=== PATIENT | female | born 1970 | race Caucasian/White ===

== ENCOUNTER → 2018-08-14 06:58 | Outpatient (CLI) | payer BC, SELFPAY ==
--- NOTE | 2018-08-14 07:01 | BI_ITS ---
MAMMOGRAPHY - BILATERAL SCREENING REASON FOR EXAM: Female, 48 years old. Routine annual screening examination. PERTINENT HISTORY: Mother with breast cancer. TECHNIQUE: Digital bilateral breast lucas (3D mammographic acquisition) in the CC and MLO projections. 2-D mediolateral oblique (MLO) and craniocaudad (CC) views of both breasts were obtained. CAD: Full Field Digital Mammography with Computer Added Detection was performed. COMPARISON: Comparison is made with prior study dated April 24, 2017 and January 02, 2015. FINDINGS: Breast Composition: There are scattered areas of fibroglandular density. There are no dominant masses or suspicious calcifications. Stable appearance of the small nodular densities in both breasts. Stable appearance of the bilateral axillary lymph nodes. No other significant abnormalities are identified. There has been no significant change since the prior study. BI/SCREENING MAMM (CAD), BILAT IMPRESSION: Stable bilateral screening mammogram. Yearly follow-up mammogram recommended. (A) ASSESSMENT CATEGORY: BIRADS Category 2: Benign. A letter regarding these results will be sent to the patient by the facility within 30 days. Approximately 10% of breast cancers are not detected by mammography. A normal mammogram should not delay biopsy of a clinically suspicious abnormality. [id number] Electronically Signed: Po Schroeder MD at 11:06 EDT Tel [phone], Service support ,
== END ==
PROVIDERS: Referring Provider Obstetrics & Gynecology; Visit Provider Obstetrics & Gynecology
DX: Z12.31 Encounter for screening mammogram for malignant neoplasm of breast (principal)
CPT/HCPCS: 77063; 77067

== ENCOUNTER → 2020-06-29 11:49 | Outpatient (CLI) | payer BC, SELFPAY ==
[2016-08-13 14:24] VITALS: BMI 32.5
[2020-07-03 09:25] LABS: HPV Reflexed? NOT INDICATED
== END ==
PROVIDERS: Visit Provider Obstetrics & Gynecology
DX: Z12.4 Encounter for screening for malignant neoplasm of cervix (principal)
CPT/HCPCS: 88175; G0145

== ENCOUNTER → 2020-07-27 07:02 | Outpatient (CLI) | payer BC, SELFPAY ==
--- NOTE | 2020-07-27 07:04 | BI_ITS ---
MAMMOGRAPHY - BILATERAL SCREENING REASON FOR EXAM: Female, 50 years old. Routine annual screening examination. PERTINENT HISTORY: Mother with breast cancer. TECHNIQUE: Digital bilateral breast angelo (3D mammographic acquisition) in the CC and MLO projections. 2-D mediolateral oblique (MLO) and craniocaudad (CC) views of both breasts were obtained. CAD: Full Field Digital Mammography with Computer Added Detection was performed. COMPARISON: Comparison is made with prior study 08/14/2018 and 04/24/2017. FINDINGS: Breast Composition: There are scattered areas of fibroglandular density. There are no dominant masses or suspicious calcifications. Stable benign-appearing bilateral axillary lymph nodes. Stable subcentimeter nodular densities in the right breast No other significant abnormalities are identified. There has been no significant change since the prior study. BI/SCREEN MAMM (CAD) W/ANGELO BILAT IMPRESSION: Stable bilateral screening mammogram. Yearly follow-up mammogram recommended. (A) ASSESSMENT CATEGORY: BIRADS Category 2: Benign. A letter regarding these results will be sent to the patient by the facility within 30 days. Approximately 10% of breast cancers are not detected by mammography. A normal mammogram should not delay biopsy of a clinically suspicious abnormality. [id number] Electronically Signed: Po Schroeder, at 8:01 EDT , Service support ,
== END ==
PROVIDERS: Referring Provider Obstetrics & Gynecology; Visit Provider Obstetrics & Gynecology
DX: Z12.31 Encounter for screening mammogram for malignant neoplasm of breast (principal)
CPT/HCPCS: 77063; 77067

== ENCOUNTER → 2021-10-12 15:32 | Outpatient (CLI) | payer BC, SELFPAY ==
--- NOTE | 2021-10-12 15:32 | MRI_ITS ---
STUDY: MRI LEFT KNEE REASON FOR EXAM: Female, 51 years old. LEFT knee pain, swelling, unable to bear weight TECHNIQUE: Standardized fat and water weighted pulse sequences were obtained in all 3 orthogonal planes. COMPARISON: Left knee x-ray dated September 03, 2021 FINDINGS: Complex tearing is present in the root insertion of the posterior horn of medial meniscus. Mild intrasubstance degenerative signal is present in the body and anterior horn. The body is partly subluxed out of the joint space. There is diffuse, less than 50% thickness articular cartilage loss of the medial femorotibial compartment. Mild subchondral reactive signal is present anterior aspect of the lateral femoral condyle. Normal medial collateral ligamentous complex (MCL). Normal distal semimembranosus, gracilis and semitendinosus tendons. Normal lateral meniscus. There is diffuse, less than 50% thickness articular cartilage loss of the lateral femorotibial compartment. Normal lateral femoral condyle and tibial plateau. Normal proximal tibiofibular articulation. Normal lateral collateral (fibular) ligament. Normal popliteus tendon. Normal biceps femoris tendon. Normal anterior cruciate ligament (ACL). Normal posterior cruciate ligament (PCL). Normal congruent patellofemoral articulation. Normal hyaline cartilage of the patellofemoral compartment. Normal medial and lateral patellar retinaculum. Normal quadriceps tendon. Normal patellar tendon. Normal Hoffa''s fat pad. Small joint effusion noted. Mild subcutaneous edema is present anterior aspect the knee joint. MRI/Lower Ext Joint Only (Routine) IMPRESSION: 1. Complex tearing is present in the root insertion of the posterior horn of medial meniscus. Mild intrasubstance degenerative signal is present in the body and anterior horn. Electronically Signed: Filiberto Giles MD at 21:05 EST , Service support ,
== END ==
PROVIDERS: PCP Family Medicine; Referring Provider Physician Assistant; Visit Provider Physician Assistant
DX: M25.561 Pain in right knee (principal); M76.51 Patellar tendinitis, right knee; M22.2X1 Patellofemoral disorders, right knee
CPT/HCPCS: 73721

== ENCOUNTER 2021-10-15 17:00 | Outpatient (RCR) | payer BC, SELFPAY ==
--- NOTE | 2021-09-26 16:24 | HP.PTEVAL_ITS ---
Patient's Visit Information MATTHEW MCCOY is a 51 year old F referred to Physical Therapy by GABY Valenzuela with a diagnosis of Rt. patellar tendonitis,tendinosis. Date of Evaluation: 09/26/21 Physical Therapist: Tl Mccall DPT - Visit Plan Frequency: 2x /Week Duration: 4 Weeks Plan: Improve knee ROM, stretch hamstrings and work to decrease knee pain. Re- evaluate strength and meniscal special tests once pain is alleviated. - Subjective Pt presents to PT with Right knee pain starting 09/18/21 after ascending and descending basement stairs carrying boxes, and moving furniture the day before. She states by the end of each day her knee swells significantly. Pt states that she ices it which allows some relief but not significantly. Pt states pain can be present during non-weightbearing activities and at rest the knee can be achy and throbbing. She states her knee locked up the other day. Pt reports the pain is constant. Denies numbness and tingling in legs, but experiences numbness in foot. Pt reports at work she has to do a lot of stairs at work and currently is experiencing significant pain when ambulating stairs. Pt states most painful region of knee is on her patellar tendon. Pt goals for therapy are to relieve pain. - Pain Right Knee Pain Intensity (Out of 10): 2 Pain Intensity Range: 0, 8 - Objective ROM: R AROM 0-4-91, PROM 0-3- 95 (empty end feel); L AROM: 0-0-120 ; Patellar mobilization on R provoked pain. STRENGTH: Knee: flexion 4+, extension 4(limited by pain), Hip : flexion 4 (limited by pain) IR 4+, ER 5 ; Left: flexion 4+, extension 4(limited by pain), Hip flexion 4+, IR 5, ER 5. NEURO : sensation: light touch intact reflexes: bilaterally: Achilles 2+, patellar 2+. GAIT: antalgic gait, limited right knee extension during stance phase - Balance/Special Test Scores Lower Extremity Functional Score: 25 - Goals Goal 1:: Pt will be independent with HEP. Goal Time Frame: 2-4 Weeks Goal 2:: STG: Pt will report 0-2/10 pain with gait around home. Goal Time Frame: 2-4 Weeks Goal 3:: LTG: Pt will have 0-120 right knee flexion, to allow for normalized gait. Goal Time Frame: 2-4 Weeks Goal 4:: LTG: pt will improve LEFS disability to < 20%. Goal Time Frame: 2-4 Weeks - Rehabilitation Potential Physical Therapy Diagnosis: knee pain, limited knee ROM Rehabilitation Potential: Good - Anticipated Interventions Patient/Client Instruction: Educate patient on: Condition, Plan of Care, Benefits of Fitness Program For the Purpose of:: To decrease pain, To decrease swelling/inflammation, To increase ROM, To improve ability to perform ADL's, To increase tolerance to activity/condition/position, To improve performance and independence with ADL's, To improve ability of physical actions for home/community/work/leisure, To improve gait and locomotor functions, To improve health of tissue, To increase flexibility/ROM, To assume or resume ADL's, To improve tolerance to ADL's Therapeutic Exercise to Include: Strength training, Body mechanics, Flexibilty training, Passive ROM, Active ROM For the Purpose of:: To decrease pain, To decrease swelling/inflammation, To increase ROM, To improve nutrient delivery to tissue, To improve ability to perform ADL's, To increase tolerance to activity/condition/position, To improve ability of physical actions for home/community/work/leisure, To improve health of tissue, To decrease soft tissue restriction, To increase flexibility/ROM, To assume or resume ADL's Manual Therapy Techniques to Include: Trigger point massage, Massage, Mobilization, Passive ROM, Soft tissue mobilization For the Purpose of:: To decrease pain, To decrease swelling/inflammation, To in crease ROM, To improve ability to perform ADL's, To decrease soft tissue restriction, To increase flexibility/ROM, To assume or resume ADL's TENS: Yes Cryotherapy (ice pack, ice massage): Yes For the Purpose of:: To decrease pain, To decrease swelling/inflammation, To increase ROM, To decrease soft tissue restriction, To increase flexibility/ROM Thank you for the opportunity to evaluate your patient. For Medicare and Medicare HMO plans, please review the plan of care and approve it. It will need to be FAXED BACK to us at [phone] for Medicare purposes. For Medicare only, by signing this I certify the plan of care. Please let me know if there are questions or concerns regarding this plan of care. Physician Signature: Date:
== END 2021-10-15 19:00 | disposition home or self-care (01) ==
LOC: PT 17:00
PROVIDERS: PCP Family Medicine; Referring Provider Physician Assistant; Visit Provider Physician Assistant
DX: M76.51 Patellar tendinitis, right knee (principal); E88.89 Other specified metabolic disorders
CPT/HCPCS: 97014; 97110; 97161; G0283

== ENCOUNTER 2023-09-23 13:16 | Emergency (ER) | payer OTHER, BC, SELFPAY ==
[2023-09-23 13:19] VITALS: BP 174/88; PULSE 103; RESP 16; TEMP 37; O2SAT 98; BMI 34.4
--- NOTE | 2023-09-23 14:10 | RAD_ITS ---
STUDY: X-RAY - RIGHT ANKLE REASON FOR EXAM: Female, 53 years old. Injury/Pain TECHNIQUE: 3 view(s) of the ankle. COMPARISON: None. FINDINGS: Normal visualized distal tibia and fibula. Normal medial and lateral malleoli. Normal tibiotalar articulation and ankle mortise. Calcaneal spurs. The visualized subtalar, talonavicular, calcaneocuboid and tarsal articulations are normal. Lateral soft tissue swelling. RAD/Ankle min 3 Views IMPRESSION: Lateral soft tissue swelling. Calcaneal spurs. Electronically Signed: Po Schroeder MD at 15:02 EST ,
--- NOTE | 2023-09-23 14:10 | ED.VIS.LOWEX ---
HPI History of Present Illness HPI Narrative: Patient presents with right ankle injury that occurred today. Patient states she missed a step and fell. Patient states she twisted her ankle. Patient is unsure if she inverted her ankle or everted it. Patient describes her pain as stabbing. Patient states it is worse with movement. Patient states it is better with rest and ice. Patient states she was having some tingling into her toes initially but this has resolved. Patient denies any weakness. Patient denies any head injury or loss of consciousness. Patient denies any other injuries. Chief Complaint: Lower Extremity Injury Informant: patient Onset/Context/Timing Onset: Today Context: Sudden Onset Timing: Continuous Quality of Pain: Stabbing Location: Right ankle Worsened by: Movement Relieved by: Rest, ice Associated Symptoms Associated Symptoms: Positive for Parasthesia; Negative for Weakness or Loss of Funtion PFSH PFSH Home Medications omega 3-dha 60 mg-epa 90 mg-fish oil 500 mg capsule, delayed release (Fish Oil) 500 mg PO DAILY 05/20/14 [History Last Taken Unknown] meloxicam 15 mg tablet 15 mg PO DAILY #30 tabs 10/17/21 [Rx Last Taken Unknown] Allergy/AdvReac Type Severity Reaction Status Date / Time No Known Allergies Allergy Verified 09/03/21 10:25 Surgical History H/O arthroscopic knee surgery Social History household members: spouse Smoking Status: Never smoker ROS ROS ED Constitutional Constitutional ED: Denies chills or fever(s) Eyes Eyes: Denies blurry vision or change in vision ENT ENT ED: Denies rhinorrhea or sore throat Cardiovascular Cardiovascular: Denies chest pain or palpitations Respiratory/Chest Respiratory/Chest: Denies cough or dyspnea Gastrointestinal Gastrointestinal: Denies nausea or vomiting Genitourinary Genitourinary ED: Denies dysuria or hematuria Musculoskeletal Musculoskeletal: Denies back pain or neck pain Integumentary Denies abscess or rash Neurologic Neurologic: Denies headache(s) or weakness Allergic/Immunologic Allergic/Immunologic ED: Denies mouth swelling or urticaria EXAM Physical Exam Const Vital Signs: 09/23/23 13:19 09/23/23 13:19 Temperature 98.6 F 98.6 F Temperature Source Temporal Temporal Pulse Rate 103 H Respiratory Rate 16 Blood Pressure 174/88 H Blood Pressure Mean 116 Pulse Ox 98 Oxygen Delivery Method Room Air Positive well nourished and well developed General Appearance ED: well developed and NAD HEENT Reports moist mucous membranes Neck full ROM and supple Extremity Extremity Narrative: There is tenderness, edema, and ecchymosis over the anterior and lateral aspects of the right ankle. There is no obvious deformity noted. Range of motion was limited in all motions of the right ankle secondary to pain. There is no tenderness over the fifth metatarsal. There is no tenderness over the proximal fibula. Pedal pulses are equal bilaterally. Sensation was intact to light touch in all digits. Capillary refill was less than 2 seconds in all digits. Neuro oriented x3, CN's II-XII intact bilaterally, moves all extremities and no sensory deficits noted Sensorium / Orientation: alert Motor Exam: strength 5/5 throughout Psych mental status grossly normal MDM MDM MDM Narrative Medical decision making narrative: Differential diagnosis includes sprain, fracture, and contusion. X-rays of the right ankle will be obtained to assess for fracture. Radiography Diagnostic Testing: X-rays of the right ankle were obtained. There are 3 views. On my independent interpretation, there is no acute fracture. There is some mild soft tissue swelling noted. Radiologist also interpreted the x-rays and agrees. Treatment and Re-Evaluation Narrative: Patient was advised of her findings. Patient was given a walking boot. Patient was given crutches. Patient was instructed to ice and elevate the right ankle. Patient was instructed to take Tylenol or ibuprofen as needed for pain. Patient was instructed to follow-up with her primary care physician in 5 to 7 days. Patient understood and was agreeable with the plan. All questions were answered. Discharge Plan Triage Chief Complaint: Lower Extremity Injury ED Provider: Porter Frias Dx/Rx/DC Orders Clinical Impression: Fall, Right ankle sprain Instructions: ED Ankle Sprain (Adult) Prescriptions: No Action meloxicam 15 mg tablet 15 mg PO DAILY Qty: 30 0RF omega 1-lpc-obv-fish oil [Fish Oil] 500 MG capsule,delayed release(DR/EC) 500 mg PO DAILY Stand Alone Forms: Work Status Form Primary Care Provider: Anupama Mullins Referrals: Anupama Mullins [Primary Care Provider] - 5-7 Days Disposition Disposition: Home, Self Care
[2023-09-23] MEDS: Morphine 4 MG/ML Syringe IM (14:16)
== END 2023-09-23 15:52 | disposition home or self-care (01) ==
PROVIDERS: Emergency Provider Emergency Medicine; PCP Family Medicine; Visit Provider Emergency Medicine
DX: S93.401A Sprain of unspecified ligament of right ankle, initial encounter (principal); W10.9XXA Fall (on) (from) unspecified stairs and steps, initial encounter
CPT/HCPCS: 73610; 96372; 99285

== ENCOUNTER → 2023-10-04 | Outpatient (CLI) | payer OTHER, BC, SELFPAY ==
--- NOTE | 2023-10-04 09:40 | CT_ITS ---
HISTORY: SPRAIN. TECHNIQUE: Helically acquired images were obtained of the right ankle without contrast. 2-D reformats were performed by the technologist. A radiation dose optimization technique was used for this scan. 305 images. COMPARISON: XR 09/23/2023. FINDINGS: BONES: Small well-corticated fragment at the tip of the fibula. Small chip fracture fragments of the posterior and anterior talus. Nondisplaced and comminuted fracture of the anterior process of the calcaneus. Calcaneal enthesopathy. JOINT SPACES: No dislocation. SOFT TISSUES: Moderate subcutaneous edema of the lateral ankle extending to the dorsum of the foot with mild subcutaneous edema of the medial ankle extending to the plantar foot. No subcutaneous emphysema or air in the deep fascial soft tissues. CT/Extremity Lower without Contra IMPRESSION: Acute comminuted and nondisplaced fracture of the anterior process of the calcaneus. Chip fracture fragments of the anterior and posterior talus. Old avulsion fracture of the lateral malleolus. Soft tissue swelling of the right ankle and foot. Electronically Signed: Daniella Lyles MD at 10:10 EST ,
== END | disposition home or self-care (01) ==
LOC: CT 09:39
PROVIDERS: PCP Family Medicine; Referring Provider Physician Assistant Surgical; Visit Provider Physician Assistant Surgical
DX: S93.401A Sprain of unspecified ligament of right ankle, initial encounter (principal)
CPT/HCPCS: 73700

== ENCOUNTER → 2025-02-28 | Outpatient (CLI) | payer BC, SELFPAY ==
--- NOTE | 2025-02-28 14:51 | BI_ITS ---
EXAM: SCRN MAMM (CAD)W/ANGELO BILAT DATE: 02/28/2025 CLINICAL HISTORY: F, Age 54 y/o , SCREENING BREAST CANCER RISK ASSESSMENT: Has not been calculated. TECHNIQUE: Bilateral screening digital breast tomosynthesis with 2D and 3D images. Computer aided detection. COMPARISON: Prior exam(s) dated 07/27/2020 and 08/14/2018. FINDINGS: TISSUE DENSITY: The breast tissue is composed of scattered area of fibroglandular density. Bilateral Breast Mammographic Findings: There is a new cluster of amorphous and round microcalcifications in the inferior, far posterior aspect of the right breast covering an area measuring approximately 2 mm. Further workup is indicated. There are no suspicious masses, suspicious clustered microcalcifications, architectural distortion or secondary signs of malignancy identified in the left breast. Benign-appearing round microcalcifications are seen in both breasts. Well- circumscribed stable isodense masses are seen in both breast. BI/SCRN MAMM (CAD)W/ANGELO BILAT IMPRESSION: OVERALL FINAL ASSESSMENT: BIRADS 0 Incomplete: Need additional imaging evaluati on and/or prior mammograms for comparison. RECOMMENDATION: Incomplete: Need additional imaging evaluation and/or prior mammograms for comp arison. Patient should return for an LM view of the right breast as well as spot compression magnification views of the right b reast microcalcifications. A letter with findings and recommendations will be mailed to the patient. Reading Location: [id number]
== END | disposition home or self-care (01) ==
LOC: OPBI 14:48
PROVIDERS: PCP Family Medicine; Referring Provider Family Medicine; Visit Provider Family Medicine
DX: Z12.31 Encounter for screening mammogram for malignant neoplasm of breast (principal)
CPT/HCPCS: 77063; 77067

== ENCOUNTER → 2025-03-14 | Outpatient (CLI) | payer BC, SELFPAY ==
--- NOTE | 2025-03-14 14:05 | BI_ITS ---
EXAM: DIAG MAMM W/CAD, UNILAT N/A CLINICAL HISTORY: F, Age 54 y/o , ABN mammogram. Right breast calcifications. Evaluate. TECHNIQUE: Bilateral Diagnostic digital breast tomosynthesis with 2D and 3D images. Computer aided detection. COMPARISON: Prior exam(s) dated 02/2025 and 07/27/2020. FINDINGS: TISSUE DENSITY: The breast tissue is composed of scattered area of fibroglandular density. There is a cluster of benign-appearing round and punctate calcifications and inferior, far posterior aspect of the right breast covering area measuring approximate 2 mm. These do not appear to be pleomorphic or worrisome for malignancy. A short-term six-month follow-up mammogram however is recommended to document stability. BI/DIAG MAMM W/CAD, UNILAT IMPRESSION: OVERALL FINAL ASSESSMENT: BIRADS 3 PROBABLY BENIGN. RECOMMENDATION: Short interval follow-up. A letter with findings and recommendations will be mailed to the patient. Reading Location: [id number]
== END | disposition home or self-care (01) ==
PROVIDERS: PCP Family Medicine; Referring Provider Family Medicine; Visit Provider Family Medicine
DX: R92.0 Mammographic microcalcification found on diagnostic imaging of breast (principal)
CPT/HCPCS: 77065

== ENCOUNTER → 2025-09-29 | Outpatient (CLI) | payer BC, SELFPAY ==
--- NOTE | 2025-09-29 09:00 | US_ITS ---
PROCEDURE: BREAST LIMITED UNILATERAL 09/29/2025 REASON FOR EXAM: F, Age 55 y/o , CALCIFICATIONS. Abnormal screening mammogram. COMPARISON: September 29, 2025.. TECHNIQUE: Procedure Code: [id number] Modality: US Procedure: BREAST LIMITED UNILATERAL. The retroareolar region of the right breast as well as the lateral aspect of the right breast was examined. FINDINGS: 4 mm x 6 mm x 4 mm cyst at the 9 o'clock position of the breast at 7 cm from the nipple. Several small cysts are also seen at the 9 o'clock and 11 o'clock radians. Small left axillary lymph node. US/Breast Limited Unilateral IMPRESSION: Mammographic findings correspond to several small cysts. BI-RADS 2: BENIGN RECOMMENDATION: Routine annual follow-up in 1 Year Reading Location: [place] [id number]
--- NOTE | 2025-09-29 09:00 | BI_ITS ---
EXAM: DIAG MAMM W/CAD, UNILAT 09/29/2025 CLINICAL HISTORY: F, Age 55 y/o , CALCIFICATIONS TECHNIQUE: Procedure Code: [id number] Modality: MG Procedure: DIAG MAMM W/CAD, UNILAT. Magnification spot views of the right breast were obtained for assessment of the calcifications. COMPARISON: Prior exam(s) dated March 14, 2025.. FINDINGS: TISSUE DENSITY: There are scattered areas of fibroglandular density. Bilateral Breast Mammographic Findings: No significant masses, calcifications or other abnormalities are identified. Stable small nodular densities in the slightly inferior lateral aspect of the right breast. Correlation with ultrasound recommended. BI/DIAG MAMM W/CAD, UNILAT IMPRESSION: No suspicious calcifications are seen. Subcentimeter nodules are seen in the slightly inferior lateral aspect of the r ight breast. Targeted sonographic correlation recommended. OVERALL FINAL ASSESSMENT BI-RADS 0: INCOMPLETE - NEED ADDITIONAL IMAGING EVALUATION. RECOMMENDATION: Ultrasound Recommended Additional Recommendation none A letter with findings and recommendations will be mailed to the patient. Reading Location: [place] [id number]
== END | disposition home or self-care (01) ==
LOC: OPBI 08:56
PROVIDERS: PCP Family Medicine; Referring Provider Family Medicine; Visit Provider Family Medicine
DX: R92.1 Mammographic calcification found on diagnostic imaging of breast (principal)
CPT/HCPCS: 76642; 77061; 77065; G0279